=== PATIENT | female | born 1955 | race Caucasian/White ===

== ENCOUNTER → 2016-09-02 | Outpatient (CLI) | payer BC ==
--- NOTE | 2016-09-02 12:47 | MAMMOGRAPHY REPORT ---
BILATERAL DIGITAL SCREENING MAMMOGRAM TOMOSYNTHESIS WITH CAD: 09/02/2016 CLINICAL HISTORY: Routine screening. Patient has no complaints. TECHNIQUE: Breast tomosynthesis in addition to standard 2D mammography was performed. Current study was also evaluated with a Computer Aided Detection (CAD) system. COMPARISON: Comparison is made to exams dated: 09/01/2015 mammogram, 08/23/2013 mammogram, 08/26/2014 mammogram, 08/17/2012 mammogram, 08/16/2011 mammogram, and 08/05/2010 mammogram - [facility]. BREAST COMPOSITION: The tissue of both breasts is almost entirely fatty. FINDINGS: No suspicious masses, calcifications, or areas of architectural distortion are noted in e ither breast. There has been no significant interval change compared to prior exams. IMPRESSION: ACR BI-RADS CATEGORY 1: NEGATIVE There is no mammographic evidence of malignancy. A 1 year screening mammogram is recommended. The p atient will receive written notification of the results. Approximately 10% of breast cancers are not detected with mammography. A negative mammographic repor t should not delay biopsy if a clinically suggestive mass is present. Ana Capone M.D. /:09/02/2016 07:54:36 Business Services Administrator: Justina KNAPP(R)(M), [facility] letter sent: Normal 1/2 BI-RADS Code: ACR BI-RADS Category 1: Negative
== END | disposition home or self-care (01) ==
LOC: C.MAMM 07:29
PROVIDERS: ATTEND Obstetrics & Gynecology
DX: Z12.31 Encounter for screening mammogram for malignant neoplasm of breast (principal)

== ENCOUNTER → 2016-09-16 | Outpatient (CLI) | payer BC | END | disposition home or self-care (01) | LOC: C.PAPS 09:57 | PROVIDERS: ATTEND Obstetrics & Gynecology | DX: Z01.419 Encounter for gynecological examination (general) (routine) without abnormal findings (principal) ==

== ENCOUNTER → 2016-09-16 | Outpatient (CLI) | payer BC | END | disposition home or self-care (01) | LOC: C.PATHSPEC 17:44 | PROVIDERS: ATTEND Obstetrics & Gynecology | DX: D12.6 Benign neoplasm of colon, unspecified (principal); N85.8 Other specified noninflammatory disorders of uterus ==

== ENCOUNTER → 2016-09-23 | Outpatient (CLI) | payer BC | END | disposition home or self-care (01) | LOC: C.LABBC 09:54 | PROVIDERS: ATTEND Internal Medicine Geriatric Medicine | DX: J02.9 Acute pharyngitis, unspecified (principal) ==

== ENCOUNTER → 2016-11-23 | Outpatient (CLI) | payer BC ==
[2016-11-23 10:55] LABS: BASO % 0.8 %; BASO ABS # 0.05 K/uL (0-0.2); COMPLETE YES; EOS % 7.1 %; HEMATOCRIT 41.3 % (37-47); IG% 0.2 %; LYMPH % 32.3 %; LYMPH ABS # 1.92 K/uL (1.2-3.4); MEAN CELL VOLUME 93.7 fL (80-100); MEAN CORPUSCULAR HEMOGLOBIN 32.2 pg (25-34); MEAN CORPUSCULAR HGB CONC 34.4 g/dl (32-36); MEAN PLATELET VOLUME 11.2 fL (7.4-10.4); MONO % 9.4 %; NEUT % 50.2 %; PLATELET COUNT 215 K/uL (130-400); RED BLOOD COUNT 4.41 M/uL (4.2-5.4); WHITE BLOOD COUNT 5.95 K/uL (4.8-10.8)
[2016-11-23 11:16] LABS: ALT/SGPT 30 U/L (12-78); BLOOD UREA NITROGEN 18 mg/dl (7-18); BUN/CREATININE RATIO 23.1 (10-20); CALCIUM 8.7 mg/dl (8.5-10.1); CARBON DIOXIDE 30 mmol/L (21-32); CHLORIDE 108 mmol/L (98-107); CHOLESTEROL 194 mg/dl (0-200); CREATININE 0.77 mg/dl (0.60-1.20); GLUCOSE 103 mg/dl (70-99); POTASSIUM 4.1 mmol/L (3.5-5.1); SODIUM 142 mmol/L (136-145)
[2016-11-23 11:27] LABS: ALB/GLOB RATIO 1.1 (0.9-2); ALKALINE PHOSPHATASE 75 U/L (45-117); AST/SGOT 15 U/L (15-37); HDL CHOLESTEROL 65 mg/dl; LDL CHOLESTEROL CALCULATED 103 mg/dl; TRIGLYCERIDES 128 mg/dl (0-150); VERY LOW DENSITY LIPOPROT CALC 26 mg/dl
[2016-11-23 12:40] LABS: ESTIMATED AVERAGE GLUCOSE 120 mg/dl; HA1C FLAG Normal (Normal)
== END | disposition home or self-care (01) ==
LOC: C.LABBC 07:42
PROVIDERS: ATTEND Internal Medicine
DX: Z11.59 Encounter for screening for other viral diseases (principal); E04.1 Nontoxic single thyroid nodule

== ENCOUNTER → 2017-03-10 | Outpatient (CLI) | payer BC ==
[~2017-03-10] VITALS: Ht 177.8 cm; Wt 110.9 kg
[2017-03-10 13:56] VITALS: BP 107/67; PULSE 82; Ht 177.8 cm; Wt 110.9 kg
== END | disposition home or self-care (01) ==
LOC: C.NEUR 13:06
PROVIDERS: ATTEND Internal Medicine Pulmonary Disease
DX: G47.30 Sleep apnea, unspecified (principal); I48.0 Paroxysmal atrial fibrillation

== ENCOUNTER → 2017-09-06 | Outpatient (CLI) | payer OTHER ==
--- NOTE | 2017-09-06 15:29 | MAMMOGRAPHY REPORT ---
BILATERAL DIGITAL SCREENING MAMMOGRAM TOMOSYNTHESIS WITH CAD: 09/06/2017 CLINICAL HISTORY: Routine screening. Patient has no complaints. TECHNIQUE: Breast tomosynthesis in addition to standard 2D mammography was performed. Current study was also evaluated with a Computer Aided Detection (CAD) system. COMPARISON: Comparison is made to exams dated: 09/02/2016 mammogram, 09/01/2015 mammogram, 08/26/2014 ma mmogram, 08/23/2013 mammogram, 08/17/2012 mammogram, and 08/16/2011 mammogram - [facility]. BREAST COMPOSITION: There are scattered areas of fibroglandular density in both breasts. FINDINGS: There is a 7 mm focal asymmetry within the left 12:00 breast middle depth, for which spot compression tomosynthesis views and possible breast ultrasound are recommended for further evaluation . The remainder of both breasts are stable compared to prior exams, without suspicious masses, calcific ations, or areas of architectural distortion noted. IMPRESSION: ACR BI-RADS CATEGORY 0: INCOMPLETE EVALUATION: NEED ADDITIONAL IMAGING EVALUATION Left breast focal asymmetry, for which additional imaging evaluation is recommended. The patient tab l be called to schedule an appointment. Approximately 10% of breast cancers are not detected with mammography. A negative mammographic report should not delay biopsy if a clinically suggestive mass is present. Ana Capone M.D. ah/:09/06/2017 07:56:17 Disc Pad Knockout Worker: Justina BOSCH)(Marlee), [facility] letter sent: Addl Imaging 0 BI-RADS Code: ACR BI-RADS Category 0: Incomplete Evaluation: Need Additional Imaging Evaluation
== END | disposition home or self-care (01) ==
LOC: C.MAMM 07:26
PROVIDERS: ATTEND Obstetrics & Gynecology
DX: Z12.31 Encounter for screening mammogram for malignant neoplasm of breast (principal); N64.89 Other specified disorders of breast

== ENCOUNTER → 2017-09-12 | Outpatient (CLI) | payer OTHER ==
--- NOTE | 2017-09-14 07:33 | MAMMOGRAPHY REPORT ---
UNILATERAL LEFT DIGITAL DIAGNOSTIC MAMMOGRAM TOMOSYNTHESIS AND TARGETED LEFT ULTRASOUND: 09/12/2017 CLINICAL HISTORY: Callback from screening mammography for a 7 mm focal asymmetry in the 12:00 middle one third of the left breast. No family history of breast cancer. TECHNIQUE: Spot compression left CC and MLO tomosynthesis images were obtained. COMPARISON: Comparison is made to exams dated: 09/06/2017 mammogram, 09/02/2016 mammogram, 09/01/2015 sid mogram, 08/26/2014 mammogram, 08/23/2013 mammogram, and 08/17/2012 mammogram - [facility]. BREAST COMPOSITION: There are scattered areas of fibroglandular density in the left breast. FINDINGS: There is partial effacement of the 7 mm focal asymmetry in the 12:00 breast on the spot com pression tomosynthesis CC and MLO views. No definite persistent mass, focal area of architectural di stortion, asymmetry or suspicious calcifications are seen. A few benign-appearing round and punctate microcalcifications are identified in the visualized left breast. Further evaluation with ultrasoun d was performed. Targeted ultrasound was performed in the left breast 11:00 through 1:00, retroareolar and 5:00 to 7:0 0 axes. An oval parallel anechoic benign simple cyst is seen in the left 11:00 axis, 4 cm from the n ipple, measuring 7.2 x 2.2 x 6.9 mm. Another anechoic benign simple cyst is seen in the 1:00 periare olar left breast measuring 4.6 x 2.4 x 3.4 mm. No other discrete solid or cystic mass is identified in the left breast on targeted ultrasound, with particular attention to the 12:00 through 6:00 axes. When comparing back to all available prior mammograms, there was some nodularity in the middle one th ird of the left breast, along the posterior nipple line or slightly medial versus lateral given sligh t differences in positioning, suggesting this 7 mm focal asymmetry may be benign. However, given sli ght increased conspicuity on the current screening mammogram, a short interval follow-up left diagnos tic tomosynthesis mammogram and possible repeat ultrasound is recommended to ensure stability in 6 mo nths. IMPRESSION: ACR-BI-RADS CATEGORY 3: PROBABLY BENIGN, TARGETED ULTRASOUND ACR-BI-RADS CATEGORY 3: PRO BABLY BENIGN Near complete effacement of the 7 mm focal asymmetry in the 12:00 left breast, with supplemental spot compression tomosynthesis images, and no suspicious sonographic correlate identified. Although this could represent benign fibroglandular tissue or the benign cyst identified in the 11:00 axis, a shor t interval follow-up left diagnostic tomosynthesis mammogram and possible ultrasound is recommended t o ensure stability in 6 months. These results and recommendations were discussed with the patient at the time of the exam. Approximately 10% of breast cancers are not detected with mammography. A negative mammographic report should not delay biopsy if a clinically suggestive mass is present. Teena Smith M.D. ay/:09/12/2017 08:52:28 Surveillance Inspector: Velma BOSCH)(Marlee), [facility] letter sent: Follow Up Recommended 3 BI-RADS Code: ACR-BI-RADS Category 3: Probably Benign Ultrasound BI-RADS: ACR-BI-RADS Category 3: Pr obably Benign
== END | disposition home or self-care (01) ==
LOC: C.MAMM 07:57
PROVIDERS: ATTEND Obstetrics & Gynecology
DX: N64.9 Disorder of breast, unspecified (principal)

== ENCOUNTER → 2017-10-12 | Outpatient (CLI) | payer OTHER | END | disposition home or self-care (01) | LOC: C.PAPS 11:25 | PROVIDERS: ATTEND Obstetrics & Gynecology | DX: Z01.411 Encounter for gynecological examination (general) (routine) with abnormal findings (principal); N95.2 Postmenopausal atrophic vaginitis; R87.610 Atypical squamous cells of undetermined significance on cytologic smear of cervix (ASC-US) ==

== ENCOUNTER → 2017-11-30 | Outpatient (CLI) | payer OTHER ==
[~2017-11-30] MED LIST: ASPI325T45 PO; CHOL100010 PO; GARLTAB3 PO; GLUC500C4 PO; LUTE15CA PO; LYSI500T34 PO; METO25TA56 PO; OMEGCAP2 PO; TURM1CAP4 PO
[2017-11-30 11:14] LABS: BASO % 0.7 %; BASO ABS # 0.05 K/uL (0-0.2); EOS % 4.8 %; EOS ABS # 0.35 K/uL (0-0.5); HEMATOCRIT 41.8 % (37-47); HEMOGLOBIN 14.3 g/dL (12.0-16.0); IG# 0.01 K/uL (0.00-0.02); LYMPH % 25.8 %; MEAN CELL VOLUME 94.8 fL (80-100); MEAN CORPUSCULAR HEMOGLOBIN 32.4 pg (25-34); MEAN CORPUSCULAR HGB CONC 34.2 g/dl (32-36); MEAN PLATELET VOLUME 10.9 fL (7.4-10.4); MONO % 7.7 %; MONO ABS # 0.57 K/uL (0.11-0.59); NEUT % 60.9 %; NEUT ABS # 4.48 K/uL (1.4-6.5); PLATELET COUNT 214 K/uL (130-400); RED CELL DISTRIBUTION WIDTH CV 13.4 % (11.5-14.5); RED CELL DISTRIBUTION WIDTH SD 46.3 fL (36.4-46.3); WHITE BLOOD COUNT 7.36 K/uL (4.8-10.8)
[2017-11-30 11:33] LABS: ALBUMIN 3.6 gm/dl (3.4-5.0); ALT/SGPT 29 U/L (12-78); BLOOD UREA NITROGEN 15 mg/dl (7-18); CALCIUM 8.6 mg/dl (8.5-10.1); CARBON DIOXIDE 25 mmol/L (21-32); CHOLESTEROL 192 mg/dl (0-200); CREATININE 0.79 mg/dl (0.60-1.20); GLUCOSE 110 mg/dl (70-99); SODIUM 139 mmol/L (136-145)
[2017-11-30 11:44] LABS: ALKALINE PHOSPHATASE 71 U/L (45-117); AST/SGOT 14 U/L (15-37); LDL CHOLESTEROL CALCULATED 103 mg/dl; TOTAL PROTEIN 6.9 gm/dl (6.4-8.2)
[2017-11-30 11:55] LABS: HEMOGLOBIN A1C 5.7 % (4.5-5.6)
== END | disposition home or self-care (01) ==
LOC: C.LABBC 07:30
PROVIDERS: ATTEND Obstetrics & Gynecology
DX: Z01.818 Encounter for other preprocedural examination (principal); Z00.00 Encounter for general adult medical examination without abnormal findings; D12.6 Benign neoplasm of colon, unspecified; R73.01 Impaired fasting glucose; E04.1 Nontoxic single thyroid nodule; I48.0 Paroxysmal atrial fibrillation; G47.30 Sleep apnea, unspecified

== ENCOUNTER → 2017-12-06 | Day surgery (SDC) | payer OTHER ==
[2017-11-20 12:36] VITALS: Ht 177.8 cm; Wt 106.8 kg
[~2017-12-06] VITALS: Ht 177.8 cm; Wt 106.8 kg
[~2017-12-06] MED LIST changes: +ASPECOTC PO; -ASPI325T45 PO; +ATROPINE SULFATE 0.1 MG/ML 5ML SYR IV PRN; +DEXAMETHASONE SOD INJ 4 MG/ML VIAL ONE; +EpHEDrine SULFATE INJ 50 MG/ML AMP IV PRN; +FENTANYL CITRATE INJ 50 MCG/1 ML 2 ML VIAL IV PRN; +FENTANYL CITRATE INJ 50 MCG/1 ML 2 ML VIAL ONE; +IBUPROFEN 600 MG TAB PO PRN; +KETOROLAC TROMETHAMINE 30 MG/ML VIAL IV. PRN; +KETOROLAC TROMETHAMINE 30 MG/ML VIAL ONE; +LACTATED RINGER'S 1000ML 1,000 ML IV SCH; +LIDOCAINE HCL 2% 2 ML VIAL (20MG/ML) ONE; +MIDAZOLAM HCL 1 MG/ML 2ML VIAL ONE; +MoRPHine SULFATE 2 MG/ML CARP IV PRN; +MoRPHine SULFATE 4 MG/ML 1 ML CARP\\VIAL IV PRN; +ONDANSETRON INJ 2 MG/ML 2 ML VIAL ONE; +OXYCODONE/ACETAMINOPHEN 5-325 TAB PO PRN; +PROPOFOL IV EMULSION 10 MG/ML 20 ML VIAL IV ONE; +SODIUM CHLORIDE 0.9% 1000ML 1,000 ML IV SCH
--- NOTE | 2017-12-06 13:08 | History & Physical Bridge - [place] ---
H&P Re-Evaluation Bridge Note: I have examined the patient, reviewed the History & Physical and in the interval since the performance of the History & Physical I have noted the following changes of clinical significance: No changes noted
--- NOTE | 2017-12-06 14:34 | [facility] Post Operative Brief Note ---
Immediate Operative Summary Operative Date Dec 06, 2017. Pre-Operative Diagnosis Post menopausal bleeding Endometrial mass Post-Operative Diagnosis Same as pre-op Procedure(s) Performed D&C/HSC, removal of mass with myosure Surgeon Head Inspector And Center Marker Surgeon(s) None Estimated Blood Loss 0cc Findings Consistent with Post-Op Diagnosis Fluids (cc crystalloids) 400cc, deficit 70cc Specimens curretings, polyps Drains None Anesthesia Type General Complication(s) none Disposition Accompanied Pt To Recovery: no Disposition: Recovery Room / PACU
--- NOTE | 2017-12-06 14:37 | Discharge Instructions ---
Discharge Instructions Date of Service Dec 06, 2017. Visit Reason for Visit: Endometrial Mass Discharge Discharge Diagnosis / Problem: s/p D&C/Hystroscopy and removal of mass Discharge Goals Goal(s): Specific goals Activity Recommendations Activity Limitations: per Instructions/Follow-up section Anesthesia . Post Anesthesia Instructions: If you have had General Anesthesia or IV Sedation: * Do not drive today. * Resume driving when surgeon permits. * Do not make important decisions or sign legal documents today. * Call surgeon for: 1. Temperature elevations greater than 101 degrees F. 2. Uncontrollable pain. 3. Excessive bleeding. 4. Persistent nausea and vomiting. 5. Medication intolerance (nausea, vomiting or rash). * For nausea and vomiting use only clear liquids such as: tea, soda, bouillon until nausea subsides, then gradually increase diet as tolerated. * If you have any concerns or questions, call your surgeon's office. If physician is unavailable and it is an emergency, call 911 or go to the nearest emergency room. . Instructions / Follow-Up Instructions / Follow-Up ACTIVITY RECOMMENDATIONS: * Avoid tampons, douching, hot tubs, pools, and intercourse until bleeding has stopped. * May shower as usual. * No strenuous activity for 24-48 hours. After 24-48 hours, you may do anything you feel like doing (driving and sports are okay). SPECIAL CARE INSTRUCTIONS: Special Diet: * Mild nausea may occur in the immediate post-operative period. * Take clear liquids such as tea, cola or bouillon until all nausea has subsided; you may then resume your normal diet. Special Care: * Light bleeding and vaginal spotting can last from a few days to 3-4 weeks. Call your doctor if bleeding becomes heavier than the heaviest part of your period. * Check your temperature twice a day for one week. If it goes above 100.4 degrees Fahrenheit (38.0 Celsius), notify your doctor. FOLLOW-UP VISIT: Will call you with results of pathology. Diet Recommendations Recommended Home Diet: no limitations, resume previous diet Procedures Procedures Performed: D&C/HSC, removal of mass with myosure Pending Studies Studies pending at discharge: no Medical Emergencies . Who to Call and When: Medical Emergencies: If at any time you feel your situation is an emergency, please call 911 immediately. . Non-Emergent Contact Non-Emergency issues call your: Customer Account Executive . . "Provider Documentation" section prepared by Francie Smith. .
--- NOTE | 2017-12-06 15:06 | OPERATIVE REPORT ---
DATE OF OPERATION: 12/06/2017 PREOPERATIVE DIAGNOSES: Thickened endometrium and suspected endometrial mass. POSTOPERATIVE DIAGNOSES: 1. Thickened endometrium. 2. Endometrial mass. PROCEDURE: 1. D and C, hysteroscopy. 2. Polypectomy with MyoSure. SURGEON: Francie Smith MD ANESTHESIA: General per laryngeal mask. ESTIMATED BLOOD LOSS: Zero. FLUIDS: 400 mL of IV fluid with 70 mL hysteroscopic deficit. INDICATIONS: Diana is a 62-year-old postmenopausal female who had an ultrasound to follow up a complex cyst on the left ovary, thickened endometrium was found. SIS revealed 2 polypoid appearing masses. FINDINGS: Uterus sounded to 10 cm and 2 polypoid masses were noted, one on the anterior uterine wall, the other on the posterior uterine wall. COMPLICATIONS: None. DRAINS: None. DISPOSITION: To recovery room in stable condition. PROCEDURE: The patient was taken the operating room, she was identified verbally and by bracelet. She was placed in dorsal spine position where general anesthesia was induced without difficulty. She was then placed in dorsal lithotomy position in [facility] stirrups and prepped and draped in normal sterile fashion. Timeout was held identifying correct patient, procedure and positioning. The bladder was drained of 300 mL of urine and exam under anesthesia revealed a normal sized midline mobile uterus. No adnexal masses appreciated. The weighted speculum was placed in the posterior vagina. Anterior lip of the cervix was grasped with a single tooth tenaculum. The uterus was sounded to 10 cm and dilated to #23 Cynthia dilator. The MyoSure hysteroscope was placed into the uterus with the above noted findings. The MyoSure was then placed through the MyoSure scope and the polyps were removed. The scope was removed. A curettage was done in 365 degrees. The procedure was terminated. All instruments were removed from the vagina. Hemostasis noted to be excellent. All postoperative counts were correct x2. The patient tolerated the procedure well and was taken to recovery room in stable condition. I attest to the content of the Intraoperative Record and any orders documented therein. Any exception s are noted below.
[2017-12-06 15:20] VITALS: TEMP 36.2
--- NOTE | 2017-12-06 15:32 | Anesthesia Progress Nt - [facility] ---
Anesthesia Post Op Note Date & Time Dec 06, 2017 at 15:32 Vital Signs Pain Intensity: 0 Vital Signs Past 12 Hours Date Time Temp Pulse Resp B/P (MAP) Pulse Ox O2 Delivery O2 Flow Rate FiO2 12/06/17 15:13 36.4 56 12 140/70 98 Room Air 12/06/17 15:13 55 18 12/06/17 15:13 55 18 98 12/06/17 15:10 140/70 12/06/17 15:08 63 16 12/06/17 15:08 59 16 98 12/06/17 15:05 129/69 12/06/17 15:03 62 14 12/06/17 15:03 58 14 98 12/06/17 15:01 122/73 12/06/17 14:58 56 10 100 12/06/17 14:58 56 10 12/06/17 14:55 125/61 12/06/17 14:53 62 16 100 12/06/17 14:53 63 16 12/06/17 14:50 121/61 12/06/17 14:48 62 16 12/06/17 14:48 62 16 100 12/06/17 14:45 127/72 12/06/17 14:44 133/75 12/06/17 14:43 36.1 68 12 133/75 98 Mask 6 12/06/17 14:43 69 12/06/17 14:43 69 97 12/06/17 12:44 36.5 62 18 120/75 (90) 100 Room Air Notes Mental Status: alert / awake / arousable, participated in evaluation Pt Amnestic to Procedure: Yes Nausea / Vomiting: adequately controlled Pain: adequately controlled Airway Patency, RR, SpO2: stable & adequate BP & HR: stable & adequate Hydration State: stable & adequate Anesthetic Complications: no major complications apparent
[2017-12-06 15:44] VITALS: BP 130/66; PULSE 58; O2SAT 98
== END | disposition home or self-care (01) ==
LOC: X.SURG 11:56
PROVIDERS: ATTEND Obstetrics & Gynecology
DX: N84.0 Polyp of corpus uteri (principal); N94.89 Other specified conditions associated with female genital organs and menstrual cycle; G47.30 Sleep apnea, unspecified; I48.0 Paroxysmal atrial fibrillation; M17.10 Unilateral primary osteoarthritis, unspecified knee; E04.1 Nontoxic single thyroid nodule; E55.9 Vitamin D deficiency, unspecified; Z83.3 Family history of diabetes mellitus; Z82.3 Family history of stroke; Z79.82 Long term (current) use of aspirin; Z79.899 Other long term (current) drug therapy; Z88.1 Allergy status to other antibiotic agents; Z88.2 Allergy status to sulfonamides